=== PATIENT | male | born 1995 | race Caucasian/White ===

== ENCOUNTER 2022-11-09 21:21 | Emergency (ER) | payer OTHER ==
[2022-11-09 21:27] VITALS: TEMP 98
--- NOTE | 2022-11-09 21:51 | ED ---
General Adult HPI - General Chief complaint: Wound/Laceration Stated complaint: Laceration on thumb Time Seen by Provider: 11/09/22 21:29 Source: patient, RN notes reviewed Mode of arrival: ambulatory Limitations: no limitations - History of Present Illness Initial comments: 27-year-old male with no significant past medical history presents to the emergency department the chief complaint of right thumb laceration. Patient reports that he was chasing a friend from a glass bottle broke. He does not believe there is any foreign body noted. He reports the pain is worse with movement. Denies use. Denies numbness, tingling, weakness in the extremity. He is unsure of his last tetanus vaccine. He reports that the injury occurred at 0200 this morning. - Related Data Allergies Allergy/AdvReac Type Severity Reaction Status Date / Time No Known Allergies Allergy Verified 11/09/22 21:27 Review of Systems ROS Statement: Those systems with pertinent positive or pertinent negative responses have been documented in the HPI. ROS Other: All systems not noted in ROS Statement are negative. Past Medical History Past Medical History: No Reported History History of Any Multi-Drug Resistant Organisms: None Reported Past Surgical History: No Surgical Hx Reported Past Psychological History: No Psychological Hx Reported Smoking Status: Never smoker Past Alcohol Use History: Occasional Past Drug Use History: Marijuana General Exam - General Exam Comments Initial Comments: General: Alert, in no acute distress Head: atraumatic normocephalic. Eyes PERRL, EOMI intact, mucous membranes moist Respiratory: Lungs clear to auscultation bilaterally Cardiovascular: Heart rate regular rate Abdominal: Soft without guarding or rebound Extremities: Normal inspection with full range of motion and normal capillary refill, right thumb with 2 cm laceration. Range of motion intact. No active bleeding. No crepitus noted. 2+ radial pulses Neuroogic: alert and oriented 3, CN II-XII intact, able to ambulate with steady gait Skin: warm dry and intact with normal color Limitations: no limitations Course Vital Signs 11/09/22 11/09/22 21:23 23:08 Temperature 98 F Pulse Rate 98 92 Respiratory 20 18 Rate Blood Pressure 127/77 130/83 O2 Sat by Pulse 98 96 Oximetry - Reevaluation(s) Reevaluation #1: 11/09/22 21:52 Initial history and physical exam performed. Patient offered x-rays to rule out foreign body however he refused Medical Decision Making - Medical Decision Making Was pt. sent in by a medical professional or institution ([facility] Velazquez, [employer]ER, urgent care, hospital, or jail...) When possible be specific @ -[No] Did you speak to anyone other than the patient for history (EMS, parent, family, police, friend...)? What history was obtained from this source @ -[No] Did you review nursing and triage notes (agree or disagree)? Why? @ -[I reviewed and agree with nursing and triage notes] Were old charts reviewed (outside hosp., previous admission, EMS record, old EKG, old radiological studies, urgent care reports/EKG's, jail records)? Report findings @ -[No old charts were reviewed] Differential Diagnosis (chest pain, altered mental status, abdominal pain women, abdominal pain men, vaginal bleeding, weakness, fever, dyspnea, syncope, headache, dizziness, GI bleed, back pain, seizure, CVA, palpatations, mental health, musculoskeletal)? @ -[not applicable] EKG interpreted by me (3pts min.). @ -[As above] X-rays interpreted by me (1pt min.). @ -[None done] CT interpreted by me (1pt min.). @ -[None done] U/S interpreted by me (1pt. min.). @ -[None done] What testing was considered but not performed or refused? (CT, X-rays, U/S, labs)? Why? @ -[None] What meds were considered but not given or refused? Why? @ -[None] Did you discuss the management of the patient with other professionals (professionals i.e. [facility]ORI Velazquez, [employer] ST[employer]ER, lab, RT, psych nurse, social sciences chair, station superintendent, teacher, aeronautical engineering officer, family service caseworker)? Give summary @ -[No] Was smoking cessation discussed for >3mins.? @ -[No] Was critical care preformed (if so, how long)? @ -[No] Were there social determinants of health that impacted care today? How? (Homelessness, low income, unemployed, alcoholism, drug addiction, transportation, low edu. Level, literacy, decrease access to med. care, alf, rehab)? @ -[No] Was there de-escalation of care discussed even if they declined (Discuss DNR or withdrawal of care, Hospice)? DNR status @ -[No] What co-morbidities impacted this encounter? (DM, HTN, Smoking, COPD, CAD, Cancer, CVA, ARF, Chemo, Hep., AIDS, mental health diagnosis, sleep apnea, morbid obesity)? @ -[None] Was patient admitted / discharged? Hospital course, mention meds given and route, prescriptions, significant lab abnormalities, going to OR and other pertinent info. @ Discharged. This is a 27-year-old male presents the emergency department with right thumb laceration. Patient had wound thoroughly explored and irrigated. Injury occurred 20 hours prior to arrival therefore stitches would not place. He was updated on his tetanus vaccine. Return precautions were discussed. Patient discharged in stable condition. Case discussed with Dr. Gasca [facility] who agrees with plan of care Undiagnosed new problem with uncertain prognosis? @ -[No] Drug Therapy requiring intensive monitoring for toxicity (Heparin, Nitro, Insulin, Cardizem)? @ -[No] Were any procedures done? @ -[No] Diagnosis/symptom? @ -Right thumb laceration Acute, or Chronic, or Acute on Chronic? @ - Acute Uncomplicated (without systemic symptoms) or Complicated (systemic symptoms)? @ -Uncomplicated Side effects of treatment? @ -[No] Exacerbation, Progression, or Severe Exacerbation? @ -[No] Poses a threat to life or bodily function? How? (Chest pain, USA, PA, pneumonia, PE, COPD, DKA, ARF, appy, cholecystitis, CVA, Diverticulitis, Homicidal, Suicidal, threat to staff... and all critical care pts) @ -Low likelihood Disposition Clinical Impression: Laceration Disposition: HOME SELF-CARE Condition: Stable Instructions (If sedation given, give patient instructions): Laceration (ED), Finger Laceration (ED) Additional Instructions: Keep the area clean dry Take Tylenol Motrin for pain as needed Limit activity Is patient prescribed a controlled substance at d/c from ED?: No Referrals: None,Stated [Primary Care Provider] - 1-2 days Time of Disposition: 23:00
[2022-11-09] MEDS ORDERED: LIDOCAINE 1% INJ 10MG/ML (20 ML MDV) SQ ONE (21:54)
[2022-11-09] MEDS ORDERED: DIPH,PERTUS(ACELL)TETVAC-LF 0.5 ML VIAL IM ONE (21:54)
[2022-11-09] MEDS ORDERED: IBUPROFEN 600 MG TAB PO STA (21:54)
[2022-11-09] MEDS ORDERED: TOPICAL SKIN ADHESIVE 1 EACH AMP TOPICAL ONE (22:50)
[2022-11-09 23:09] VITALS: BP 130/83; PULSE 92; RESP 18
== END 2022-11-09 23:09 | disposition home or self-care (01) ==
LOC: EC 21:21
DX: S61.011A Laceration without foreign body of right thumb without damage to nail, initial encounter (principal); F12.90 Cannabis use, unspecified, uncomplicated; Z23 Encounter for immunization; W25.XXXA Contact with sharp glass, initial encounter
CPT/HCPCS: 90715; 90471; 99282; J2001